=== PATIENT | female | born 1960 | race Caucasian/White ===

== ENCOUNTER 2017-03-30 08:42 | Emergency (ER) | payer BC, SELFPAY ==
[2017-03-30 09:02] VITALS: BP 108/60; PULSE 78; RESP 15; TEMP 38.1; O2SAT 98; BMI 20.3
[2017-03-30 09:19] LABS: UTC Influenza A Antigen Positive (Negative); UTC Influenza B Antigen Negative (Negative)
--- NOTE | 2017-03-30 09:41 | HMH.EDUTC ---
[facility] [place] Clinical Impression: Flu Disposition: Home, Self-Care Condition on Discharge: Good Instructions: How to Avoid a Cold or Flu, Influenza Additional Instructions: Increase fluids, Tylenol or ibuprofen as needed for pain or fever If symptoms worsen or do not improve return or be seen in the ER Follow-up with primary care this week if no improvement Prescriptions: Oseltamivir Phosphate [Tamiflu 75mg Capsule] 75 mg PO BID #10 cap Time of Disposition: 09:45 Medical Decision Making Vital Signs: 03/30/17 09:02 Temperature 100.6 F H Temperature Source Oral Pulse Rate [Right Brachial] 78 Respiratory Rate 15 Blood Pressure [Right Arm] 108/60 Blood Pressure Mean [Right Arm] 76 Blood Pressure Source [Right Arm] Automatic Cuff Blood Pressure Position [Right Arm] Sitting 02 Sat by Pulse Oximetry 98 Oxygen Delivery Method Room Air - Lab Data Lab Results 03/30/17 09:12: Influenza Type A Ag Positive A, Influenza Type B Ag Negative - Elier Inquiry Pt receiving controlled substance: No Elier was queried for this patient: No [facility] [place] - General Stated complaint: fever headache sore throat Mode of Arrival: Ambulatory Source of Information: Patient Limitations: No Limitations Description of Symptoms (Recalled from Triage Doc. by RN): flu like symptoms started friday morning HEENT Symptoms (Recalled from RN notes): Yes (runny nose) Resp Symptoms (Recalled from RN notes): Yes (cough, congestion) Skin Symptoms (Recalled from RN notes): No MS Symptoms (Recalled from RN notes): Yes (generalized body aches) Functional Status (Recalled from RN notes): na - Related Data Previous Rx's Medication Instructions Recorded Oseltamivir Phosphate [Tamiflu 75 mg PO BID #10 cap 03/30/17 75mg Capsule] Allergies Allergy/AdvReac Type Severity Reaction Status Date / Time No Known Allergies Allergy Verified 03/30/17 09:13 - Worker's Comp Is this a Worker's Comp case?: No Is this an [facility] Worker's Comp?: No Is this a [facility] Worker's Comp?: No [facility] History Medical History: Reports:: Cancer (hodgkins lymphoma in 2005) Denies:: Diabetes Mellitus Type 1, Diabetes Mellitus Type 2, MRSA Laterality Cases: Left: Arthroscopy Knee - *Social History Smoking Status: Never smoker Alcohol Intake: current Alcohol Intake Frequency:: a few times a month - Psychiatric History Expresses thoughts of harming self/others: None Suicide Plan Description: No Plan ROS Obtained: Yes All systems reviewed & no additional complaints - Constitutional Constitutional: Reports body ache, Reports chills, Reports fever(s), Reports malaise - Eyes Eyes: Reports system reviewed and no additional complaints, except as docu - ENT Ears, Nose, Mouth, and Throat: Reports as per HPI, Reports sore throat - Cardiovascular Cardiovascular: Reports system reviewed and no additional complaints, except as docu - Respiratory Respiratory: Yes system reviewed and no additional complaints, except as docu - Gastrointestinal Gastrointestingal: Reports: system reviewed and no additional complaints, except as docu - Genitourinary Male Genitourinary: Reports system reviewed and no additional complaints, except as docu - Integumentary/Breasts Skin/Breast: Reports system reviewed and no additional complaints, except as docu - Neurologic Neurologic: Reports system reviewed and no additional complaints, except as docu - Endocrine Endocrine: Reports system reviewed and no additional complaints, except as docu Physical Exam - General General appearance: alert, in no apparent distress - Eye Eye exam: Present: normal appearance, PERRL - ENT ENT exam: Present: normal exam - Neck Neck exam: Present: normal inspection, full ROM - Chest Chest inspection: Present: normal inspection - Respiratory Respiratory exam: Present: normal lung sounds bilaterally - Cardiovascular Cardiovascular exam: Present: regular rate, no
--- NOTE | 2017-03-30 09:45 | ED_ITS ---
[facility] [place]position Clinical Impression: Flu Disposition: Home, Self-Care Condition on Discharge: Good Instructions: How to Avoid a Cold or Flu, Influenza Additional Instructions: Increase fluids, Tylenol or ibuprofen as needed for pain or fever If symptoms worsen or do not improve return or be seen in the ER Follow-up with primary care this week if no improvement Prescriptions: Oseltamivir Phosphate [Tamiflu 75mg Capsule] 75 mg PO BID #10 cap Time of Disposition: 09:45 Medical Decision Making Vital Signs: 03/30/17 09:02 Temperature 100.6 F H Temperature Source Oral Pulse Rate [Right Brachial] 78 Respiratory Rate 15 Blood Pressure [Right Arm] 108/60 Blood Pressure Mean [Right Arm] 76 Blood Pressure Source [Right Arm] Automatic Cuff Blood Pressure Position [Right Arm] Sitting 02 Sat by Pulse Oximetry 98 Oxygen Delivery Method Room Air - Lab Data Lab Results 03/30/17 09:12: Influenza Type A Ag Positive A, Influenza Type B Ag Negative - Elier Inquiry Pt receiving controlled substance: No Elier was queried for this patient: No [facility] [place] HPI - General Stated complaint: fever headache sore throat Mode of Arrival: Ambulatory Source of Information: Patient Limitations: No Limitations Description of Symptoms (Recalled from Triage Doc. by RN): flu like symptoms started friday morning HEENT Symptoms (Recalled from RN notes): Yes (runny nose) Resp Symptoms (Recalled from RN notes): Yes (cough, congestion) Skin Symptoms (Recalled from RN notes): No MS Symptoms (Recalled from RN notes): Yes (generalized body aches) Functional Status (Recalled from RN notes): na - Related Data Previous Rx's Medication Instructions Recorded Oseltamivir Phosphate [Tamiflu 75 mg PO BID #10 cap 03/30/17 75mg Capsule] Allergies Allergy/AdvReac Type Severity Reaction Status Date / Time No Known Allergies Allergy Verified 03/30/17 09:13 - Worker's Comp Is this a Worker's Comp case?: No Is this an [facility] Worker's Comp?: No Is this a [facility] Worker's Comp?: No [facility] History Medical History: Reports:: Cancer (hodgkins lymphoma in 2005) Denies:: Diabetes Mellitus Type 1, Diabetes Mellitus Type 2, MRSA Laterality Cases: Left: Arthroscopy Knee - *Social History Smoking Status: Never smoker Alcohol Intake: current Alcohol Intake Frequency:: a few times a month - Psychiatric History Expresses thoughts of harming self/others: None Suicide Plan Description: No Plan ROS Obtained: Yes All systems reviewed & no additional complaints - Constitutional Constitutional: Reports body ache, Reports chills, Reports fever(s), Reports malaise - Eyes Eyes: Reports system reviewed and no additional complaints, except as docu - ENT Ears, Nose, Mouth, and Throat: Reports as per HPI, Reports sore throat - Cardiovascular Cardiovascular: Reports system reviewed and no additional complaints, except as docu - Respiratory Respiratory: Yes system reviewed and no additional complaints, except as docu - Gastrointestinal Gastrointestingal: Reports: system reviewed and no additional complaints, except as docu - Genitourinary Male Genitourinary: Reports system reviewed and no additional complaints, except as docu - Integumentary/Breasts Skin/Breast: Reports system reviewed and no additional complaints,
== END 2017-03-30 09:54 | disposition home or self-care (01) ==
PROVIDERS: Emergency Provider Nurse Practitioner Family; Family Provider Internal Medicine Adolescent Medicine
DX: J11.1 Influenza due to unidentified influenza virus with other respiratory manifestations (principal); Z85.72 Personal history of non-Hodgkin lymphomas
CPT/HCPCS: 87804; 99201

== ENCOUNTER → 2018-04-09 13:14 | Outpatient (CLI) | payer BC, SELFPAY ==
--- NOTE | 2018-04-09 13:19 | XR_ITS ---
XR chest 2V HISTORY: ITS.REASON: RT SIDE CHEST PAIN ORDERING PHYSICIAN: Nancy Pan PATIENT AGE: 58 years COMPARISON: 08/09/2013 FINDINGS: The cardiomediastinal silhouette and pulmonary vascularity are within normal limits. The lungs are clear without infiltrates, suspicious nodules, or pleural effusions. No acute bony abnormalities. IMPRESSION: Negative chest, no acute finding
[2018-04-09 15:01] LABS: Alanine Aminotransferase 23 U/L (12-78); Albumin Level 4.1 gm/dL (3.4-5.0); Albumin/Globulin Ratio 1.5 (1.1-1.8); Alkaline Phosphatase 68 U/L (46-116); Anion Gap 12.3 mEq/L (5-15); Aspartate Amino Transferase 22 U/L (15-37); Blood Urea Nitrogen 15 mg/dL (7-18); Calcium 9.4 mg/dL (8.5-10.1); Carbon Dioxide 28 mmol/L (21.0-32.0); Chloride 104 mmol/L (98-107); Creatinine,Serum 0.79 mg/dL (0.55-1.02); Estimated Glomerular Filt Rate 75 ml/min (>60); GFR (African American) 90 ML/MIN (>60); Globulin 2.8 gm/dl (1.3-3.2); Glucose 91 mg/dL (74-106); Potassium 4.3 mmoL/L (3.5-5.1); Sodium 140 mmol/L (136-145); Thyroid Stimulating Hormone 2.39 uIU/ml (0.358-3.740); Total Protein,Serum 6.9 gm/dL (6.4-8.2)
[2018-04-09 15:19] LABS: Basophils % 0.3 % (0.1-2.0); Eosinophils % 0.5 % (0.1-12.0); Hematocrit 40.3 % (37.0-47.0); Hemoglobin 12.9 g/dL (12.2-16.2); Lymphocytes # 1.9 K/mm3 (0.7-4.5); Lymphocytes % 23.7 % (10-50); Mean Corpuscular Volume 93.5 fl (81-99); Mean Platelet Volume 7.7 fl (7.4-10.4); Monocytes # 0.3 K/mm3 (0.1-1.0); Monocytes % 3.8 % (1.7-9.3); Neutrophils # 5.6 K/mm3 (1.8-7.8); Neutrophils % 71.8 % (37.0-80.0); Platelet Count 213 K/mm3 (142-424); Red Blood Count 4.31 M/mm3 (4.20-5.40); Red Cell Distribution Width 12.5 % (11.5-17.5); White Blood Count 7.9 K/mm3 (4.8-10.8)
== END ==
PROVIDERS: PCP Internal Medicine Adolescent Medicine; Visit Provider Nurse Practitioner Family
DX: R07.9 Chest pain, unspecified (principal); E03.9 Hypothyroidism, unspecified; Z85.71 Personal history of Hodgkin lymphoma
CPT/HCPCS: 36415; 71046; 80053; 84443; 85025

== ENCOUNTER → 2018-08-05 10:53 | Outpatient (CLI) | payer BC, SELFPAY ==
--- NOTE | 2018-08-05 10:59 | XR_ITS ---
XR chest 2V HISTORY: History of Hodgkin's lymphoma ITS.REASON: PRO OP CLEARANCE ORDERING PHYSICIAN: Samuel Hernandez PATIENT AGE: 58 years COMPARISON: 04/09/2018 FINDINGS: The cardiomediastinal silhouette and pulmonary vascularity are within normal limits. The lungs are clear without infiltrates, suspicious nodules, or pleural effusions. No acute bony abnormalities. IMPRESSION: Negative chest, no acute finding
[2018-08-05 11:24] LABS: Microscopic, Urine URINE MICROSCOPIC (MICROSCOPIC)
[2018-08-05 11:55] LABS: Activated Partial Thrombo Time 28.7 seconds (23.6-34.0); INR 0.96 (0.9-1.1)
[2018-08-05 12:30] LABS: Basophils % 0.7 % (0.1-2.0); Eosinophils # 0.1 K/mm3 (0.0-0.4); Eosinophils % 1.2 % (0.1-12.0); Hematocrit 38.6 % (37.0-47.0); Hemoglobin 13.2 g/dL (12.2-16.2); Lymphocytes # 1.5 K/mm3 (0.7-4.5); Lymphocytes % 35.6 % (10-50); Mean Corpuscular HGB Conc 34.1 g/dL (31.8-35.4); Mean Corpuscular Hemoglobin 30.8 pg (27.0-31.2); Mean Corpuscular Volume 90.2 fl (81-99); Mean Platelet Volume 7.4 fl (7.4-10.4); Monocytes # 0.2 K/mm3 (0.1-1.0); Monocytes % 5.9 % (1.7-9.3); Neutrophils # 2.3 K/mm3 (1.8-7.8); Neutrophils % 56.6 % (37.0-80.0); Platelet Count 184 K/mm3 (142-424); Red Blood Count 4.28 M/mm3 (4.20-5.40); Red Cell Distribution Width 12.6 % (11.5-17.5); White Blood Count 4.1 K/mm3 (4.8-10.8)
[2018-08-05 13:05] LABS: Appearance,Urine CLEAR (Clear); Bilirubin,Urine Negative (Negative); Blood, Urine Negative (Negative); Color,Urine YELLOW (Yellow); Glucose,Urine (UA) Negative (Negative); Ketones,Urine Negative (Negative); Leukocyte Esterase,Urine Negative (Negative); Nitrate,Urine Negative (Negative); Protein,Urine Negative (Negative); Urobilinogen,Urine 0.2 EU/dl (0.2)
[2018-08-05 13:22] LABS: Bacteria,Urine Trace /lpf; Squamous Epithelial Cell,Urine Occasional #/hpf (0-5)
[2018-08-05 13:41] LABS: Anion Gap 12.6 mEq/L (5-15); Blood Urea Nitrogen 16 mg/dL (7-18); Calcium 8.9 mg/dL (8.5-10.1); Carbon Dioxide 28 mmol/L (21.0-32.0); Chloride 106 mmol/L (98-107); Creatinine,Serum 0.64 mg/dL (0.55-1.02); Estimated Glomerular Filt Rate 95 ml/min (>60); GFR (African American) 115 ML/MIN (>60); Glucose 85 mg/dL (74-106); Hemoglobin A1C 5.4 % (0.0-7.0); Potassium 4.6 mmoL/L (3.5-5.1); Sodium 142 mmol/L (136-145)
== END ==
PROVIDERS: PCP Internal Medicine Adolescent Medicine; Visit Provider Orthopaedic Surgery
DX: Z01.818 Encounter for other preprocedural examination (principal)
CPT/HCPCS: 36415; 71046; 80048; 81001; 83036; 85025; 85610; 85730

== ENCOUNTER 2018-09-24 15:00 | Outpatient (RCR) | payer BC, SELFPAY | END 2018-09-24 15:05 | disposition home or self-care (01) | LOC: PT 15:00 | PROVIDERS: Visit Provider Orthopaedic Surgery | DX: M25.562 Pain in left knee (principal); M25.561 Pain in right knee | CPT/HCPCS: 97110; 97140; 97163; 97164 ==

== ENCOUNTER → 2018-10-09 10:01 | Outpatient (CLI) | payer BC, SELFPAY ==
--- NOTE | 2018-10-09 | NVE_ITS ---
Venous Exam IMPRESSIONS No evidence of deep or superficial vein thrombosis involving the right lower extremity and left lower extremity History: Swelling of the right lower extremity. Edema of the right leg. Patient had bruising appear on the lateral aspect of the distal calf 10/04/18 of right lower extremity. Labs, prior tests, procedures, and surgery: Right knee joint prosthesis (August 2018). Left knee joint prosthesis (August 2018). Labs, prior tests, procedures, and surgery: Right knee joint prosthesis (August 2018). Left knee joint prosthesis (August 2018). Complete lower extremity venous duplex evaluation. Doppler flow study including spectral analysis, color and ellis scale imaging. Location: Vascular laboratory. Patient status: Outpatient. CRITICAL FINDINGS - [facility] Read back and verified. - 10/09/18 - 10:45 - Bilateral venous dopplers negative for DVT or SVT Tables: Venous flow and imaging: + +-------+ + Location Overall Flow properties + +-------+ + Right common femoral Patent Normal phasicity; spontaneous; normal augmentation; compressible + +-------+ + Right saphenofemoral junction Patent Compressible + +-------+ + Right profunda femoral Patent Compressible + +-------+ + Right femoral Patent Normal phasicity; spontaneous; normal augmentation; compressible; no reflux + +-------+ + Right greater saphenous Patent Normal phasicity; spontaneous; normal augmentation; compressible + +-------+ + Right popliteal Patent Normal phasicity; spontaneous; normal augmentation; compressible + +-------+ + Right posterior tibial Patent Compressible + +-------+ + Right peroneal Patent Compressible + +-------+ + Right gastrocnemius Patent Compressible + +-------+ + Right soleal Patent Compressible + +-------+ + Left common femoral Patent Normal phasicity; spontaneous; normal augmentation; compressible + +-------+ + Left saphenofemoral junction Patent Compressible + +-------+ + Left profunda femoral
== END ==
PROVIDERS: PCP Internal Medicine Adolescent Medicine; Visit Provider Orthopaedic Surgery
DX: M79.662 Pain in left lower leg (principal); M79.661 Pain in right lower leg; M79.89 Other specified soft tissue disorders
CPT/HCPCS: 93970

== ENCOUNTER → 2019-06-28 09:30 | Outpatient (CLI) | payer BC, SELFPAY ==
[2019-06-28 11:41] LABS: Free T4 (Free Thyroxine) 1.27 ng/dl (0.78-2.19)
[2019-06-28 11:56] LABS: Thyroid Stimulating Hormone 3.29 uIU/mL (0.465-4.68)
== END ==
PROVIDERS: Visit Provider Nurse Practitioner Family
DX: E03.9 Hypothyroidism, unspecified (principal)
CPT/HCPCS: 36415; 84439; 84443

== ENCOUNTER → 2020-05-15 08:30 | Outpatient (CLI) | payer BC, SELFPAY ==
[2020-05-15 09:07] LABS: Basophils % 0.6 % (0.1-2.0); Eosinophils # 0.1 K/mm3 (0.0-0.4); Eosinophils % 1.4 % (0.1-12.0); Hematocrit 41.5 % (37.0-47.0); Hemoglobin 13.6 g/dL (12.2-16.2); Lymphocytes # 1.6 K/mm3 (0.7-4.5); Mean Corpuscular HGB Conc 32.8 g/dL (31.8-35.4); Mean Corpuscular Hemoglobin 30.4 pg (27.0-31.2); Mean Corpuscular Volume 92.7 fl (81-99); Mean Platelet Volume 7.9 fl (7.4-10.4); Monocytes # 0.3 K/mm3 (0.1-1.0); Monocytes % 4.9 % (1.7-9.3); Neutrophils # 3.7 K/mm3 (1.8-7.8); Neutrophils % 65.1 % (37.0-80.0); Platelet Count 197 K/mm3 (142-424); Red Blood Count 4.48 M/mm3 (4.20-5.40); Red Cell Distribution Width 12.7 % (11.5-17.5); White Blood Count 5.8 K/mm3 (4.8-10.8)
[2020-05-15 09:56] LABS: Chloride 106 mmol/L (98-107); Potassium 4.3 mmoL/L (3.5-5.1); Sodium 141 mmol/L (136-145)
[2020-05-15 09:59] LABS: Anion Gap 11.3 mEq/L (5-15); Blood Urea Nitrogen 18 mg/dl (7-17); Carbon Dioxide 28 mmol/L (22.0-30.0); Estimated Glomerular Filt Rate 85 ml/min (>60); GFR (African American) 103 ML/MIN (>60)
[2020-05-15 10:00] LABS: Calcium 9.4 mg/dl (8.4-10.2); Glucose 76 mg/dl (74-100)
[2020-05-15 10:32] LABS: Coronavirus 19 IgG Antibody Negative (Negative)
[2020-05-15 10:33] LABS: Coronavirus 19 IgM Antibody Negative (Negative)
== END ==
PROVIDERS: Visit Provider Surgery
DX: Z01.818 Encounter for other preprocedural examination (principal); K42.9 Umbilical hernia without obstruction or gangrene; Z11.52 Encounter for screening for COVID-19
CPT/HCPCS: 36415; 80048; 85025; 86328

== ENCOUNTER 2020-05-16 08:29 | Day surgery (SDC) | payer BC, SELFPAY ==
[2020-05-09 12:36] VITALS: BMI 20.2
[2020-05-16] VITALS (11 sets, daily range): BP systolic 87–134; BP diastolic 63–74; PULSE 49–63; RESP 13–18; TEMP 36.4–43; O2SAT 93–100
--- NOTE | 2020-05-16 09:25 | HMH.ANESCL ---
[facility] Anesthesia Checklist - Patient Identification Patient Identification: Arm Band - Structural Data Admitted From: Home Planned Operative Procedure/s: Open Umbilical Hernia Repair Consent for Planned Operative Procedure(s) Verified: Yes Verified Documents: Surgical Consent, History and Physical - NPO Status Verified Time NPO: 00:00 - Additional verifications Anesthesia Reactions: Yes (slow to wake) Hx Blood Transfusions: No Blood Transfusion Reaction: No - Airway Assessment C-Spine Mobility Assessed: Yes (mp2) TMJ Mobility Assessed: Yes Dentition: Good Dentition - Neurological Assessment Level of Consciousness: Awake, Alert - Anesthesia Plan Anesthesia Risk discussed: Yes Anesthesia Plan: Verified ASA Class: I Anesthesia Type: General [facility] History I have reviewed the patient's past medical history: Yes Medical History: Reports:: Cancer (HODGKINS) Denies:: Diabetes Mellitus Type 1, Diabetes Mellitus Type 2, Internal Pacemaker, MRSA, Seizures *Have you ever received a pneumonia vaccine?: No *Have you received a flu vaccine this season?: No Other Medical History: Denies: Blood Transfusion Reaction Anesthesia experience/problems:: nac Laterality Cases: Bilateral: Arthroscopy Knee Other Surgeries: Yes: Cancer Surgery, Colonoscopy, Other. No: Pacemaker Amputation: No Fractures: No - *Social History Last grade of school completed: Advanced degree Smoking Status: Never smoker Alcohol Intake: current Alcohol Intake Frequency:: 0-2 drinks per day Substance Use Type: denies use *Occupational Status:: employed Housing: house Household Members: spouse *Travel in the last 8 weeks: Inside the [facility] Family Hx:: Cancer, Coronary Artery Disease
--- NOTE | 2020-05-16 09:35 | P.HP_ITS ---
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 She is referred by Dr. Evaristo Quesada for umbilical hernia. She states that for several years she has noticed that her umbilical area has protruded. Initially this was asymptomatic. However it now protrudes more and she does have some occasional discomfort. This is most notable when she is working out at [facility] She occasionally has to manually reduce the area. [facility] History I have reviewed the patient's past medical history: Yes Medical History: Reports:: Cancer (HODGKINS) Denies:: Diabetes Mellitus Type 1, Diabetes Mellitus Type 2, Internal Pacemaker, MRSA, Seizures *Have you ever received a pneumonia vaccine?: No *Have you received a flu vaccine this season?: No Other Medical History: Denies: Blood Transfusion Reaction Anesthesia experience/problems:: nac Laterality Cases: Bilateral: Arthroscopy Knee Other Surgeries: Yes: Cancer Surgery, Colonoscopy, Other. No: Pacemaker Amputation: No Fractures: No - *Social History Last grade of school completed: Advanced degree Smoking Status: Never smoker Alcohol Intake: current Alcohol Intake Frequency:: 0-2 drinks per day Substance Use Type: denies use *Occupational Status:: employed Housing: house Household Members: spouse *Travel in the last 8 weeks: Inside the [facility] Family Hx:: Cancer, Coronary Artery Disease Review of Systems - Review of Systems Review of systems:: pertinent systems reviewed and negative unless documented below Meds Home Medications Medication Instructions Recorded Confirmed Type Levothyroxine Sodium 50 mcg PO DAILY 09/06/17 05/09/20 History [Levothyroxine 50mcg (0.05mg) Tab] Allergies Allergy/AdvReac Type Severity Reaction Status Date / Time No Known Allergies Allergy Verified 04/10/20 09:15 Exam Vital signs and Labs for Last 24 Hours: Temp Pulse Resp BP Pulse Ox 97.6 F 56 L 18 124/64 100 05/16/20 08:44 05/16/20 08:44 05/16/20 08:44 05/16/20 08:44 05/16/20 08:44 - *Routine HEENT Exam Head: Present: normocephalic Eye: Present: EOMI, PERRL ENT: Present: mucous membranes moist - *Routine Neck Exam Present: supple. Absent: lymphadenopathy - *Routine Respiratory Exam Present: CTA bilaterally - *Routine Cardiovascular Exam Present: RRR - *Routine Abdominal Exam Present: soft, normoactive bowel sounds. Absent: tenderness Comments: Hernia - *Routine Extremities Exam Absent: cyanosis, clubbing, edema - *Routine Skin Exam Present: warm. Absent: rash - *Routine Neurological Exam Present: alert, oriented X3 Assessment and Plan - Assessment and plan all Dx Assessment and Plan for all problems:: Open repair
--- NOTE | 2020-05-16 10:42 | P.OP_ITS ---
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 She is referred by Dr. Evaristo Quesada for umbilical hernia. She states that for several years she has noticed that her umbilical area has protruded. Initially this was asymptomatic. However it now protrudes more and she does have some occasional discomfort. This is most notable when she is working out at [facility]. She occasionally has to manually reduce the area. Operative findings:: She had a relatively small hernia measuring less than 1 cm with herniated fatty tissues. There was redundant hernia sac. Operative note:: Patient was taken to the operating room. She was given preoperative intravenous antibiotics. In the operating room she was placed in a supine position. General anesthesia was induced. Abdomen was prepped and draped. Subumbilical skin incision was made. Dissection was carried down to hernia sac adherent to the umbilical subdermis. This was dissected free. Hernia sac was opened. The extraneous tissues of the peritoneum of the hernia sac was excised down to the fascia and this was sent as specimen labeled hernia sac . Overall size of the defect was rather small measuring 6 or 8 mm. A small sized Bard Ventralex mesh was rolled and inserted into the space posterior to the fascia. It was oriented. The tails of the mesh were sutured to the fascial edges with several 2-0 Prolene sutures. Tails were then cut flush with the fascia. Fascia was closed over the mesh with a couple of interrupted 0 Ethibond sutures. Local anesthetic was infiltrated. Umbilical subdermis was reapproximated to the underlying fascia with a couple of interrupted 2-0 Vicryl sutures. Skin was closed with running 4-0 Monocryl in a subcuticular fashion. Clean dry sterile dressing was applied. Condition: stable Disposition: PACU Specimens:: Hernia sac Complications:: None immediately apparent
--- NOTE | 2020-05-16 10:50 | HMH.ANESI ---
[facility] Anesthesia Record Part I Intake, IV Amount: 900 Estimated blood loss (mL): 5 Urine output (mL): 0 Blood Pressure: 87/66 SaO2: 94 Pulse Rate: 63 Respiratory Rate: 13 Temperature: 98.1 F Patient is:: Drowsy Stable to PACU at:: 10:47
--- NOTE | 2020-05-17 10:20 | HMH.ANESII ---
[facility] Anesthesia Record Part II Discharge Time: 11:27 Destination: Surgical Day Care (OP Surgery) PACU nurse assessment reviewed?: Yes Patient Condition:: Good Anesthesia Complications:: None Swallowing reflex intact?: Yes Cyanosis?: No Blood Pressure: 123/70 Pulse Rate: 53 Temperature: 97.3 F Mental Status: Alert & Oriented Pain level:: 0 Nausea and/or vomitting:: None Intake, IV Amount: 0
[2020-05-17 10:21] VITALS: BP 123/70; PULSE 53; TEMP 36.3
== END 2020-05-16 12:00 | disposition home or self-care (01) ==
LOC: OR 08:31
PROVIDERS: PCP Internal Medicine Adolescent Medicine; Visit Provider Surgery
PROC: (CPT 49585; principal; 2020-05-16 10:00)
DX: K42.9 Umbilical hernia without obstruction or gangrene (principal); Z85.71 Personal history of Hodgkin lymphoma; Z79.899 Other long term (current) drug therapy
CPT/HCPCS: 49585; 96374; C1781; J2405; J2710

== ENCOUNTER → 2020-06-15 08:20 | Outpatient (CLI) | payer BC, SELFPAY ==
[2020-06-15 09:29] LABS: Blood Urea Nitrogen 15 mg/dl (7-17); Estimated Glomerular Filt Rate 85 ml/min (>60); GFR (African American) 103 ML/MIN (>60)
== END ==
PROVIDERS: Visit Provider Surgery
DX: Z01.818 Encounter for other preprocedural examination (principal)
CPT/HCPCS: 36415; 82565; 84520

== ENCOUNTER → 2020-06-20 09:24 | Outpatient (CLI) | payer BC, SELFPAY ==
--- NOTE | 2020-06-20 09:24 | CT_ITS ---
PROCEDURE: CT ABDOMEN PELVIS W CON CLINICAL INDICATION: s/p umbilical hernia Hernia repair 05/16/20 Still having pain above/right of umbilical area Marked with BB COMPARISON: CT ABDPELW/O CT ABD PELVIS W/O CONTRAST from 07/14/2012 CT ABDPELW/O CT ABD PELVIS W/O CONTRAST from 01/23/2017 TECHNIQUE: IV Contrast: 75ML Isovue 370 Oral Contrast None Axial images obtained with sagittal and coronal reformats. All CT scans at the facility use one or more dose reduction, viz: automated exposure control, ma/kV adjustment per patient size (including targeted exams where dose is matched to indication, i.e. head), or iterative reconstruction technique. FINDINGS: LOWER THORAX: There is an 8 mm noncalcified nodule in the left lower lobe probably unchanged. There are bilateral breast prosthesis. ABDOMEN & PELVIS: A well-circumscribed 6 mm hypodensity is present in the right hepatic lobe anteriorly and may be due to small hepatic cyst probably unchanged. The gallbladder, spleen, adrenal glands, and pancreas have an unremarkable appearance. There are multiple calcified splenic granulomas. No renal or ureteral calculi. No hydronephrosis or renal mass. No evidence of appendicitis. There is a mild amount of retained colonic feces. No intestinal obstruction or free air. There has been interval umbilical hernia repair. There is some thickening of the abdominal wall at the region of the umbilicus with mild thickening of the umbilical soft tissue. Slight increased soft tissue density is also present deep to the umbilicus at approximately 2.6 cm transverse and 0.8 cm AP which may be due to postsurgical changes or small hematoma. No abnormal fluid collection/abscess is evident. The uterus is slightly canted toward the right. No acute bony findings. IMPRESSION: 1. Postsurgical changes at the umbilical region with mild thickening of the abdominal wall and posterior to the abdominal wall which may only be related to postsurgical changes. Cannot exclude a small amount of hemorrhage. No no abscess or recurrence hernia. 2. Stable left lower lobe nodule and probable hepatic cyst Dictated by: Torres Kelley MD 06/21/2020 11:12 Torres Kelley MD in [place] 06/21/2020 11:12
== END ==
PROVIDERS: PCP Internal Medicine Adolescent Medicine; Visit Provider Surgery
DX: Z09 Encounter for follow-up examination after completed treatment for conditions other than malignant neoplasm (principal)
CPT/HCPCS: 74177; Q9967

== ENCOUNTER → 2020-06-26 08:33 | Outpatient (CLI) | payer BC, SELFPAY | PROVIDERS: PCP Internal Medicine Adolescent Medicine; Visit Provider Internal Medicine Adolescent Medicine | DX: Z20.822 Contact with and (suspected) exposure to COVID-19 (principal) | CPT/HCPCS: U0003 ==

== ENCOUNTER → 2020-10-05 07:23 | Outpatient (CLI) | payer BC, SELFPAY ==
[2020-10-05 07:38] LABS: Basophils # 0.1 K/mm3 (0-0.2); Basophils % 1.1 % (0.1-2.0); Eosinophils # 0.1 K/mm3 (0.0-0.4); Eosinophils % 1.4 % (0.1-12.0); Hematocrit 41.3 % (37.0-47.0); Hemoglobin 13.6 g/dL (12.2-16.2); Lymphocytes # 1.9 K/mm3 (0.7-4.5); Lymphocytes % 38.2 % (10-50); Mean Corpuscular HGB Conc 33.1 g/dL (31.8-35.4); Mean Corpuscular Hemoglobin 29.9 pg (27.0-31.2); Mean Corpuscular Volume 90.6 fl (81-99); Mean Platelet Volume 8.4 fl (7.4-10.4); Monocytes # 0.3 K/mm3 (0.1-1.0); Monocytes % 6.2 % (1.7-9.3); Neutrophils # 2.6 K/mm3 (1.8-7.8); Neutrophils % 53.2 % (37.0-80.0); Platelet Count 217 K/mm3 (142-424); Red Blood Count 4.56 M/mm3 (4.20-5.40); Red Cell Distribution Width 13.1 % (11.5-17.5); White Blood Count 4.9 K/mm3 (4.8-10.8)
[2020-10-05 07:46] LABS: Alanine Aminotransferase 24 U/L (12-78); Albumin Level 4.5 g/dl (3.5-5.0); Albumin/Globulin Ratio 1.6 (1.1-1.8); Alkaline Phosphatase 67 U/L (38-126); Anion Gap 9.7 mEq/L (5-15); Aspartate Amino Transferase 39 U/L (14-36); Bilirubin,Total 1.4 mg/dl (0.2-1.3); Blood Urea Nitrogen 16 mg/dl (7-17); Calcium 8.9 mg/dl (8.4-10.2); Carbon Dioxide 30 mmol/L (22.0-30.0); Chloride 104 mmol/L (98-107); Estimated Glomerular Filt Rate 85 ml/min (>60); GFR (African American) 103 ML/MIN (>60); Globulin 2.9 g/dL (1.3-3.2); Glucose 94 mg/dl (74-100); Potassium 4.7 mmoL/L (3.5-5.1); Sodium 139 mmol/L (136-145); Total Protein,Serum 7.4 g/dl (6.3-8.2)
--- NOTE | 2020-10-05 09:03 | CT_ITS ---
PROCEDURE: CT SOFT TISSUE NECK W CON CLINICAL HISTORY: CERVICAL LYMPHADENOPATHY,H/O HODGKINS LYMPHOMA Lt neck nodule x several months Marked with BB No c/o pain Hx of [place] lymphoma COMPARISON: CR CXR2V XR chest 2V from 04/09/2018 TECHNIQUE: Oral Contrast: None IV Contrast: 75 mL Isovue 370. Axial images obtained with sagittal and coronal reformats. All CT scans at the facility use one or more dose reduction, viz: automated exposure control, ma/kV adjustment per patient size (including targeted exams where dose is matched to indication, i.e. head), or iterative reconstruction technique. FINDINGS: The orbits and paranasal sinuses have an unremarkable appearance. There is mild rightward nasal septal deviation. The nasopharynx appears unremarkable. There is some asymmetric increased soft tissue density in the left tonsillar region with obliteration of the left parapharyngeal recess area. Direct visualization is suggested.. The epiglottis and glottic region appears unremarkable. A BB is placed in the left lateral neck region at the submandibular area in the area of palpable concern. Left submandibular gland is somewhat prominent and may account for the palpable abnormality. There are few small lymph nodes in the submandibular area on the left measuring up to 1.3 x 0.7 cm. The left parotid gland is also slightly more more prominent than the right side. No dominant adenopathy is evident. No abnormal fluid collections. There is some mild right apical pleural thickening with patchy ground-glass density in the right apex. Degenerative changes are present in the cervical spine with reversal of the cervical lordosis IMPRESSION: 1. There is mild prominence of the left submandibular gland which may account for the palpable abnormality in the left neck. There is a small lymph node posterior to the left submandibular gland measuring 1.3 x 0.7 cm. 2. Asymmetric increased soft tissue density in the left palatine tonsillar area. Tonsillar hypertrophy, inflammatory or infectious process or even neoplasm is a consideration. Please correlate with direct visualization. Dictated by: Torres Kelley MD 10/06/2020 08:09 Torres Kelley MD in [place] 10/06/2020 08:09
[2020-10-06 15:57] LABS: Uric Acid 3.3 mg/dl (2.5-6.2)
== END ==
PROVIDERS: PCP Internal Medicine Adolescent Medicine; Visit Provider Nurse Practitioner Family
DX: R59.0 Localized enlarged lymph nodes (principal); Z85.71 Personal history of Hodgkin lymphoma
CPT/HCPCS: 36415; 70491; 80053; 84550; 85025; Q9967

== ENCOUNTER 2020-10-23 09:38 | Emergency (ER) | payer BC, SELFPAY ==
[2020-10-23 09:45] VITALS: BP 127/64; PULSE 61; RESP 19; TEMP 36.8; O2SAT 99; BMI 20.5
--- NOTE | 2020-10-23 10:34 | HMH.EDUTC ---
[facility] [facility] [place] Clinical Impression: Exposure to COVID-19 virus Disposition: Home, Self-Care Condition on Discharge: Good Instructions: DI for COVID-19 (Suspected or Confirmed ), Coronavirus Disease 2019, Preventing the Spread of Coronavirus Discharge Instructions Additional Instructions: *Monitor Temp, Over the counter Motrin or Tylenol as directed/as needed Tylenol every 4 hours and Motrin every 6 hours (as long as your family doctor has told you that you can take it) for fever or pain. and straight to ER if unable to lower temp less than 101.0 after medication given Follow up IMMEDIATELY for new or worsening symptoms or no Noticeable improvement over the next 48-72 hours. 911 for difficulty breathing or swallowing You were tested for today for COVID19 your test result should be back in the next 24-48 hours, you may call to the [facility] to see if your test results are back in the next 48 hours [phone] [facility] hours are 9am-9pm You was given a handout with instructions for Self Quarantine and Self isolation for while you wait on test results and what to do if they are positive If you are positive the Health Dept will be contacting you also Make sure to take your Vitamins Vit. C Vit D and Zinc if you can take them Referrals: Evaristo Quesada MD [Primary Care Provider] - As needed Time of Disposition: 10:40 Medical Decision Making - Elier Inquiry Pt receiving controlled substance: No Elier was queried for this patient: No Vital Signs: 10/23/20 09:45 Temperature 98.3 F Temperature Source Oral Pulse Rate [Right Brachial] 61 Respiratory Rate 19 Blood Pressure [Right Arm] 127/64 Blood Pressure Mean [Right Arm] 85 Blood Pressure Source [Right Arm] Automatic Cuff Blood Pressure Position [Right Arm] Sitting 02 Sat by Pulse Oximetry 99 Oxygen Delivery Method Room Air Orders (Tests/Meds): ORDERS Category Date Time Status Covid-19 Nasal PCR ([facility]) Routine Lab 10/23/20 09:57 Re[place] [facility] [place] - General Stated complaint: Covid Test Time Seen by Provider: 10/23/20 10:34 Mode of Arrival: Ambulatory Source of Information: Patient Limitations: No Limitations Description of Symptoms (Recalled from Triage Doc. by RN): COVID TEST D/T EXPOSURE FROM CO-WORKER LAST WEEK. 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 and wanted to get tested for COVID to make sure she didnt having before being around family - Related Data Home Medications Medication Instructions Recorded Confirmed Levothyroxine Sodium 50 mcg PO DAILY 09/06/17 06/23/20 [Levothyroxine 50mcg (0.05mg) Tab] Allergies Allergy/AdvReac Type Severity Reaction Status Date / Time No Known Allergies Allergy Verified 06/23/20 09:20 - Worker's Comp Is this a Worker's Comp case?: No [facility] History - Hepatitis A Screen Drug use history?: No High risk sexual behaviors?: No History of sexually transmitted infection?: No Currently employed?: No Childcare worker?: No Do you have indoor plumbing?: Yes Do you have electricity?: Yes Attestation statement:: This patient has been screened for Hepatitis A risk factors. I have reviewed the patient's past medical history: Yes Medical History: Reports:: Cancer Denies:: Diabetes Mellitus Type 1, Diabetes Mellitus Type 2, Internal Pacemaker, MRSA, Seizures Other Medical History: Denies: Blood Transfusion Reaction Laterality Cases: Bilateral: Arthroscopy Knee Other Surgeries: Yes: Cancer Surgery, Colonoscopy, Hernia Repair, Other. No: Pacemaker Amputation: No Fractures: No - Social
[2020-10-23 10:38] VITALS: BP 127/64; PULSE 61; RESP 19; TEMP 36.8; O2SAT 99
== END 2020-10-23 10:43 | disposition home or self-care (01) ==
PROVIDERS: Emergency Provider Nurse Practitioner; PCP Internal Medicine Adolescent Medicine
DX: Z20.822 Contact with and (suspected) exposure to COVID-19 (principal)
CPT/HCPCS: 99202; G0463; U0003

== ENCOUNTER → 2020-12-21 17:36 | Outpatient (CLI) | payer BC, SELFPAY | PROVIDERS: PCP Internal Medicine Adolescent Medicine; Visit Provider Nurse Practitioner | DX: Z20.822 Contact with and (suspected) exposure to COVID-19 (principal) | CPT/HCPCS: C9803; U0003; U0005 ==

== ENCOUNTER → 2021-02-06 17:21 | Outpatient (CLI) | payer BC, SELFPAY | PROVIDERS: Visit Provider Nurse Practitioner Family | DX: N39.0 Urinary tract infection, site not specified (principal); B96.20 Unspecified Escherichia coli [E. coli] as the cause of diseases classified elsewhere | CPT/HCPCS: 87086; 87088; 87186 ==

== ENCOUNTER → 2021-02-28 07:58 | Outpatient (CLI) | payer BC, SELFPAY ==
--- NOTE | 2021-02-28 | CA_ITS ---
APPROVED REPORT EXAM: Comprehensive 2D, Doppler, and color-flow Echocardiogram Wire Stripping Machine Operator: Venecia Ken, RT(R) Ht: 5 ft 3 in Wt: 120lbs BSA: 1.56 BP: 127/64 mmHg Indications: murmur, CP, palpitations, family history HD, hx of CA 2D Dimensions LVOT 1.82 cm (M/F) 1.5-2.5 LA Volume 32.90 mL LA Volume Index 21.22 mL/m2 (M/F) 16-34 M-Mode Dimensions RVDd 2.38 cm (0.9-2.6) LA Diam 2.98 cm (1.9-4.0) LVDd 4.63 cm (3.5-5.7) Ao Diam 2.67 cm (2.0-3.7) LVDs 3.59 cm (3.5-5.7) IVSd 0.69 cm (0.6-1.1) PWd 0.81 cm (0.6-1.1) EF (Teich) 45.20% FS 22.50% EDV (Teich) 98.80 mL ESV (Teich) 54.10 mL LV Diastology E Decel Time 240.00 (160-240 msec) E/A Ratio 0.92 MED E' 5.70 (< 7 cm/sec) E'/MED E' Ratio 9.91 (>14) Aortic Valve LVOT Max 100.00 (70-110 cm/s) LVOT VTI 23.62 cm AoV Peak Coleman. 145.00 (50-130 cm/s) AO Peak GR. 8.40 mmHg AO Mean GR. 4.20 (<5 mmHg) AO VTI 34.59 (18-25 cm) ESTELLE (VTI) 1.78 (2.5-4.5 cm2) Mitral Valve MV A Velocity 61.00 (40-130 cm/s) E/A Ratio 0.92 MV Decel. Time 240.00 (160-240 ms) Left Ventricle Left atrium is mildly enlarged, left ventricle is normal size, visually estimated ejection fraction 55% with no regional wall motion abnormality, diastolic parameters are inconclusive. There is no concentric left ventricular hypertrophy. Right Ventricle Right atrium and right ventricle are normal size and contractility. Aortic Valve Aortic valve leaflets are not well visualized, possibility of bicuspid aortic valve cannot be excluded, there is mild aortic insufficiency. There is no aortic stenosis. Mitral Valve Mitral valve grossly normal, there is trace mitral regurgitation. Tricuspid Valve Tricuspid grossly normal, there is trace tricuspid regurgitation, tricuspid regurgitation jet velocity is inadequate for calculation of the right ventricular systolic pressure. Pulmonic Valve Pulmonic valve is poorly visualized. Great Vessels Aortic root is normal size. Inferior vena cava is poorly visualized. Pericardium No significant pericardial effusion noted. Conclusion 1. Mildly enlarged left atrium, normal left ventricular size, visually estimated ejection fraction 55% with no regional wall motion abnormality, there is no concentric left ventricular hypertrophy, diastolic parameters are inconclusive. 2. Aortic valve leaflets are not well visualized, possibility of bicuspid aortic valve cannot be excluded, there is mild aortic insufficiency. There is no aortic stenosis 3. No significant pericardial effusion 4. Inferior vena cava is poorly visualized. Electronically signed by : Ted Lozada MD 02/28/2021 20:44:07
== END ==
PROVIDERS: PCP Internal Medicine Adolescent Medicine; Visit Provider Nurse Practitioner Family
DX: R01.1 Cardiac murmur, unspecified (principal)
CPT/HCPCS: 93306

== ENCOUNTER → 2021-09-19 16:05 | Outpatient (CLI) | payer SELFPAY ==
--- NOTE | 2021-09-19 16:10 | XR_ITS ---
FINAL REPORT CLINICAL HISTORY: lateral foot pain, ran over with forklift FINDINGS: RIGHT FOOT Three views of the right foot demonstrate no acute fracture or dislocation. There is advanced joint space narrowing at the 1st MTP joint. There is hypertrophic change the joint margins. The soft tissues are unremarkable. IMPRESSION: No acute bony abnormality. 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 Reviewed, Interpreted and Dictated by Natalio Ya MD Transcribed by Bridget Vargas Authenticated and [facility]
== END ==
PROVIDERS: PCP Internal Medicine Adolescent Medicine; Visit Provider Internal Medicine Adolescent Medicine
DX: M79.671 Pain in right foot (principal)
CPT/HCPCS: 73630

== ENCOUNTER → 2021-10-26 15:38 | Outpatient (CLI) | payer BC, SELFPAY ==
--- NOTE | 2021-10-26 15:42 | XR_ITS ---
FINAL REPORT CLINICAL HISTORY: PAIN, CRUSH INJURY rt foot 4th & 5th toes and top of foot COMPARISON: 09/19/2021 FINDINGS: Right foot Three views were obtained. There is severe degenerative changes of the 1st metatarsophalangeal joint. There is a nondisplaced fracture at the distal aspect of the 5th proximal phalanx. No soft tissue abnormality is identified. IMPRESSION: Nondisplaced fracture of the 5th proximal phalanx. Reviewed, Interpreted and Dictated by Elvis Kimbrough III, MD Transcribed by Silvina Canales Authenticated and [facility]
== END ==
PROVIDERS: PCP Internal Medicine Adolescent Medicine; Visit Provider Podiatrist
DX: M79.671 Pain in right foot (principal)
CPT/HCPCS: 73630

== ENCOUNTER → 2022-09-09 12:08 | Outpatient (CLI) | payer OTHER, SELFPAY ==
[2022-09-09 12:30] LABS: Basophils % 0.9 % (0.1-2.0); Eosinophils # 0.1 K/mm3 (0.0-0.4); Eosinophils % 1.5 % (0.1-12.0); Hematocrit 39.8 % (37.0-47.0); Hemoglobin 12.6 g/dL (12.2-16.2); Lymphocytes # 1.8 K/mm3 (0.7-4.5); Mean Corpuscular HGB Conc 31.7 g/dL (31.8-35.4); Mean Corpuscular Hemoglobin 28.9 pg (27.0-31.2); Mean Corpuscular Volume 91.1 fl (81-99); Mean Platelet Volume 8.2 fl (7.4-10.4); Monocytes # 0.3 K/mm3 (0.1-1.0); Monocytes % 5.7 % (1.7-9.3); Neutrophils # 2.2 K/mm3 (1.8-7.8); Platelet Count 177 K/mm3 (142-424); Red Blood Count 4.37 M/mm3 (4.20-5.40); Red Cell Distribution Width 13.1 % (11.5-17.5); White Blood Count 4.3 K/mm3 (4.8-10.8)
[2022-09-09 13:00] LABS: Alanine Aminotransferase 23 U/L (12-78); Albumin Level 4.3 g/dl (3.5-5.0); Albumin/Globulin Ratio 1.7 (1.1-1.8); Alkaline Phosphatase 62 U/L (38-126); Anion Gap 11.5 mEq/L (5-15); Aspartate Amino Transferase 38 U/L (14-36); Bilirubin,Total 1.2 mg/dl (0.2-1.3); Blood Urea Nitrogen 14 mg/dl (7-17); Calcium 8.7 mg/dl (8.4-10.2); Carbon Dioxide 29 mmol/L (22.0-30.0); Chloride 104 mmol/L (98-107); Estimated Glomerular Filt Rate 101 ml/min (>60); GFR (African American) 123 ML/MIN (>60); Globulin 2.5 g/dL (1.3-3.2); Glucose 85 mg/dl (74-100); Potassium 4.5 mmoL/L (3.5-5.1); Sodium 140 mmol/L (136-145); Total Protein,Serum 6.8 g/dl (6.3-8.2)
[2022-09-09 13:06] LABS: C-Reactive Protein 1.3 mg/L (0-4)
[2022-09-09 13:18] LABS: T4 (Thyroxine) 9.2 ug/dl (5.53-11.0); Triiodothryronine (T3) Uptake 33 % (23.5-40.5)
[2022-09-09 13:46] LABS: Erythrocyte Sedimentation Rate 16 mm/hr (0-30)
== END ==
PROVIDERS: PCP Internal Medicine Adolescent Medicine; Visit Provider Nurse Practitioner Family
DX: R51.9 Headache, unspecified (principal); E03.9 Hypothyroidism, unspecified; Z85.71 Personal history of Hodgkin lymphoma
CPT/HCPCS: 36415; 80053; 84436; 84443; 84479; 85025; 85651; 86140

== ENCOUNTER → 2022-09-17 12:52 | Outpatient (CLI) | payer OTHER, SELFPAY ==
--- NOTE | 2022-09-17 13:00 | CT_ITS ---
FINAL REPORT TECHNIQUE: Thin section axial CT images were obtained through the neck after intravenous contrast administration. Coronal and sagittal reformats were also obtained. This study was performed with techniques to keep radiation doses as low as reasonably achievable (ALARA). Individualized dose reduction techniques using automated exposure control or adjustment of mA and/or kV according to the patient''s size were employed. CLINICAL HISTORY: HEADACHE,H/O HODGKINS LYMPHOMA,LYMPHADENOPATHY COMPARISON: 10/05/2020 FINDINGS: There is continued persistent soft tissue fullness of the left tonsillar pillar also noted on the previous CT examination of 2020. This is of uncertain significance, however in a patient with a history of Hodgkin's disease neoplasm cannot be excluded. There are several left internal jugular chain nodes which are larger than noted on the prior CT. A node at the level of the left hyoid bone was 7 x 5 mm, now measures 12 x 9 mm. A second node at the C3 level was 7 x 4 mm, and on today's exam measures 11 x 7 mm. There are several other smaller left-sided cervical nodes as well. The thyroid gland is unremarkable. The visualized sinuses are clear. There is mild scarring in the right lung apex with ground glass opacities, stable since the prior exam. There are degenerative changes present in the cervical spine. IMPRESSION: Persistent soft tissue fullness of the left tonsillar pillar as described on the previous CT of 2020, of uncertain significance but neoplasm would be difficult to exclude. CT exam there has been interval enlargement of several left internal jugular chain nodes since the prior. These are worrisome for recurrent neoplasm, and would recommend PET CT examination for further evaluation as indicated. Reviewed, Interpreted and Dictated by Elvis Kimbrough III, MD Transcribed by Lorene Eddy Authenticated and [facility]
== END ==
PROVIDERS: PCP Nurse Practitioner Family; Visit Provider Nurse Practitioner Family
DX: R51.9 Headache, unspecified (principal); R59.1 Generalized enlarged lymph nodes; Z85.71 Personal history of Hodgkin lymphoma
CPT/HCPCS: 70491; Q9967

== ENCOUNTER → 2022-09-19 09:38 | Outpatient (CLI) | payer OTHER, SELFPAY ==
--- NOTE | 2022-09-19 09:43 | MR_ITS ---
FINAL REPORT CLINICAL HISTORY: HEADACHE, HISTORY OF HODGKINS LYMPHOMA. COMPARISON: None FINDINGS: Multiplanar MR imaging of the brain was performed without and with contrast. There is no evidence of intracranial hemorrhage or mass. No abnormal extra-axial fluid collection is seen. The ventricular size is within normal limits. There is no evidence of shift of the midline structures. The posterior fossa and brainstem have an unremarkable appearance. No area of abnormal restricted diffusion is identified. No abnormal contrast enhancement is seen. Normal major vessel vascular flow voids are noted. IMPRESSION: No acute intracranial abnormality identified. Reviewed, Interpreted and Dictated by Elvis Kimbrough III, MD Transcribed by Lorene Eddy Authenticated and [facility]
== END ==
PROVIDERS: PCP Nurse Practitioner Family; Visit Provider Nurse Practitioner Family
DX: R51.9 Headache, unspecified (principal); R59.1 Generalized enlarged lymph nodes; Z85.71 Personal history of Hodgkin lymphoma
CPT/HCPCS: 70553; A9576

== ENCOUNTER → 2022-10-30 11:41 | Outpatient (CLI) | payer OTHER, SELFPAY ==
--- NOTE | 2022-10-30 11:50 | ECG_ITS ---
APPROVED REPORT Exam: Resting ECG HR:53 bpm ECG Measurements Heart Rate 53 AXES ND 162 P 13 QRSd 88 QRS 45 QT 429 T 59 QTc 413 Conclusion SINUS BRADYCARDIA BORDERLINE ECG UNCONFIRMED REPORT Electronically signed by : Evaristo Quesada MD 10/31/2022 06:43:01
[2022-10-30 12:32] LABS: Basophils % 0.5 % (0.1-2.0); Eosinophils % 0.6 % (0.1-12.0); Hematocrit 38.3 % (37.0-47.0); Hemoglobin 12.7 g/dL (12.2-16.2); Lymphocytes # 2.2 K/mm3 (0.7-4.5); Lymphocytes % 42.8 % (10-50); Mean Corpuscular HGB Conc 33.3 g/dL (31.8-35.4); Mean Corpuscular Hemoglobin 30.5 pg (27.0-31.2); Mean Corpuscular Volume 91.6 fl (81-99); Mean Platelet Volume 8.1 fl (7.4-10.4); Monocytes # 0.3 K/mm3 (0.1-1.0); Monocytes % 5.4 % (1.7-9.3); Neutrophils # 2.6 K/mm3 (1.8-7.8); Neutrophils % 50.7 % (37.0-80.0); Platelet Count 199 K/mm3 (142-424); Red Blood Count 4.18 M/mm3 (4.20-5.40); Red Cell Distribution Width 13.2 % (11.5-17.5); White Blood Count 5.1 K/mm3 (4.8-10.8)
[2022-10-30 13:00] LABS: Alanine Aminotransferase 23 U/L (12-78); Albumin Level 4.2 g/dl (3.5-5.0); Albumin/Globulin Ratio 1.5 (1.1-1.8); Alkaline Phosphatase 64 U/L (38-126); Anion Gap 12.4 mEq/L (5-15); Aspartate Amino Transferase 32 U/L (14-36); Bilirubin,Total 1.3 mg/dl (0.2-1.3); Blood Urea Nitrogen 17 mg/dl (7-17); Calcium 9.1 mg/dl (8.4-10.2); Carbon Dioxide 28 mmol/L (22.0-30.0); Chloride 105 mmol/L (98-107); Estimated Glomerular Filt Rate 85 ml/min (>60); GFR (African American) 103 ML/MIN (>60); Globulin 2.8 g/dL (1.3-3.2); Glucose 89 mg/dl (74-100); Potassium 4.4 mmoL/L (3.5-5.1); Sodium 141 mmol/L (136-145)
== END ==
PROVIDERS: PCP Nurse Practitioner Family; Visit Provider Otolaryngology
DX: Z01.812 Encounter for preprocedural laboratory examination (principal)
CPT/HCPCS: 36415; 80053; 85025; 93005

== ENCOUNTER 2024-02-21 18:28 | Emergency (ER) | payer OTHER, SELFPAY ==
--- NOTE | 2024-02-21 18:45 | ED_ITS ---
Discharge Plan Disposition Patient Disposition: Home, Self-Care Condition: Good Prescriptions Prescriptions: No Action levothyroxine 50 MCG tablet 50 mcg PO DAILY Referrals Follow up/Referrals: Evaristo Quesada MD [Primary Care Provider] - See instructions Activity Restrictions/Add. Instructions Additional Instructions/Restrictions: Follow up with your primary care physician. GO TO THE ER FOR ANY WORSENING SYMPTOMS OR CONCERNS Clinical Impressions Clinical Impression: Encounter for change or removal of nonsurgical wound dressing Print Language Print Language: Luxembourgish Discharge ED Provider: Alex Pineda [facility] [place] General Stated complaint: dressing looked at for chest tube Time Seen by Provider: 02/21/24 18:44 History of Present Illness Provider Complaint: She is here to have a dressing replaced on her chest tube site. Related Data Home Medications ?Medication ?Instructions ?Recorded ?Confirmed levothyroxine 50 mcg tablet 50 mcg PO DAILY THYROID 09/06/17 10/30/21 Allergies Allergy/AdvReac Type Severity Reaction Status Date / Time No Known Allergies Allergy Verified 10/30/21 09:56 [facility] Disclaimer: The information contained in this section may have been updated after the patient was seen, as this information can be updated by other users. 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 current occupational exposures/hazards: No caffeine: Yes Have you lived/traveled outside [place] in past 30 days?: No Contact w/someone who lives/traveled outside [place] past 30 days?: No Exposure to someone with infectious disease in past 14 days?: No Do you have a fever (greater than 100.4 F or 38 C)?: No Have you tested positive for COVID-19: No Exposed to someone with COVID-19 in past 14 days?: No Do you have a sore throat?: No Do you have a cough?: No Do you have any weakness?: No Do you have any diarrhea?: No Are you experiencing any unusual bleeding?: No Do you have any muscle aches/pain?: No Do you have any abdominal pain?: No Are you experiencing loss of taste or smell?: No ROS Obtained: Yes All systems reviewed & no additional complaints except as documented Constitutional Constitutional: Denies chills and Denies fever(s) Eyes Eyes: Denies eye discharge ENT Ears, Nose, Mouth, and Throat: Denies dizziness, Denies otalgia and Denies sore throat Cardiovascular Cardiovascular: Denies chest pain Respiratory Respiratory: Denies shortness of breath, Denies chest congestion, Denies cough, Denies stridor and Denies wheezing Gastrointestinal Gastrointestingal: Denies nausea or vomiting Musculoskeletal Musculoskeletal: Reports system reviewed and no additional complaints, except as documented and Denies arthralgias Integumentary/Breasts Skin/Breast: Denies rash Neurologic Neurologic: Denies dizziness and Denies paresthesias Allergic/Immunologic Allergic/Immunologic: Denies wheezing Physical Exam General General appearance: alert and in no apparent distress Head Head exam: atraumatic, normocephalic and normal inspection Eye Eye exam: Present normal appearance, PERRL and EOMI ENT ENT exam: Present normal exam, normal oropharynx, mucous membranes moist, TM's normal bilaterally and normal external ear exam Neck Neck exam: Present normal inspection, full ROM and trachea midline; Absent meningismus or lymphadenopathy Chest Chest inspection: Present normal inspection and symmetric chest wall rise; Absent tenderness Respiratory Respiratory exam: Present normal lung sounds bilaterally; Absent respiratory distress Cardiovascular Cardiovascular exam: Present regular rate and normal rhythm; Absent JVD Abdominal Exam Abdominal exam: Present soft and normal bowel sounds; Absent distention, tenderness or guarding Extremities Exam Extremities exam: Present normal inspection, full ROM and normal capillary refill; Absent calf tenderness Back Exam Back exam: Present normal inspection; Absent tenderness Neurological Exam Neurological exam: Present alert and oriented X3 Psychiatric Psychiatric exam: Present normal affect and normal mood Skin Skin exam: Present other (there is redness around her left sided chest tube site. ) Lymphatic Lymphatic Findings: no adenopathy Medical Decision Making Medical Records Medical records reviewed: No I reviewed the patient's medical records. Screening: Per USPSTF and CDC recommendations, given the prevalence of disease in our region, it is our hospital?s policy to screen for HIV and viral Hepatitis for all patients aged 18 and over and those with ongoing risk factors. Elier Inquiry Pt receiving controlled substance: No
[2024-02-21 18:58] VITALS: BP 139/51; PULSE 77; RESP 18; TEMP 36.9; O2SAT 97; BMI 21.2
[2024-02-21 19:07] VITALS: BP 139/51; PULSE 77; RESP 18; TEMP 36.9
--- NOTE | 2024-02-25 10:24 | PC.NURSE ---
PATIENT INFORMED OF WOUND CULTURE RESULTS, ADVISED TO CALL DOCTOR WHO DID HER CHEST TUBE VIANEY FOR FURTHER TX. PATIENT IN UNDERSTANDING.
== END 2024-02-21 19:08 | disposition home or self-care (01) ==
PROVIDERS: Emergency Provider Nurse Practitioner Family; PCP Internal Medicine Adolescent Medicine
DX: Z48.00 Encounter for change or removal of nonsurgical wound dressing (principal)
CPT/HCPCS: 87070; 87077; 87186; 87205; 99211; G0380

== ENCOUNTER 2024-03-04 11:33 | Outpatient (CLI) | payer OTHER, SELFPAY ==
--- NOTE | 2024-03-04 11:36 | XR_ITS ---
FINAL REPORT TECHNIQUE: Chest PA & Lateral CLINICAL HISTORY: FEVER, S/P LOBECTOMY OF LUNG, left FINDINGS: 2 views of the chest were performed. The heart size is normal. The mediastinum is within normal limits. There is mild atelectasis at the left lung base. There are no pleural effusions. There is no pneumothorax. The bony thorax appears intact. IMPRESSION: Mild left basilar atelectasis. Reviewed, Interpreted and Dictated by Natalio Ya MD Transcribed by rAianna Ramos Authenticated and [facility]
[2024-03-04 11:58] LABS: Coronavirus 19, PCR Not Detected (NotDetected); Influenza A, PCR Not Detected (NotDetected); Influenza B, PCR Not Detected (NotDetected)
[2024-03-04 12:25] LABS: Hematocrit 34.7 % (37.0-47.0); Hemoglobin 11.4 g/dL (12.2-16.2); Lymphocytes % 25.5 % (10-50); Mean Corpuscular HGB Conc 32.9 g/dL (31.8-35.4); Mean Corpuscular Hemoglobin 29.2 pg (27.0-31.2); Mean Corpuscular Volume 88.7 fl (81-99); Mean Platelet Volume 9.6 fl (7.4-10.4); Neutrophils % 65.8 % (37.0-80.0); Platelet Count 124 K/mm3 (142-424); Red Blood Count 3.91 M/mm3 (4.20-5.40); Red Cell Distribution Width 12.9 % (11.5-17.5)
[2024-03-04 12:26] LABS: Basophils % 0.5 % (0.1-2.0); Eosinophils % 0.5 % (0.1-12.0); Lymphocytes # 0.5 K/mm3 (0.7-4.5); Monocytes # 0.1 K/mm3 (0.1-1.0); Monocytes % 4.1 % (1.7-9.3); Neutrophils # 1.3 K/mm3 (1.8-7.8)
[2024-03-04 13:05] LABS: Alanine Aminotransferase 30 U/L (12-78); Albumin Level 3.5 g/dl (3.5-5.0); Albumin/Globulin Ratio 1.5 (1.1-1.8); Alkaline Phosphatase 65 U/L (38-126); Aspartate Amino Transferase 66 U/L (14-36); Bilirubin,Total 0.6 mg/dl (0.2-1.3); Blood Urea Nitrogen 15 mg/dl (7-17); Calcium 8.1 mg/dl (8.4-10.2); Carbon Dioxide 25 mmol/L (22.0-30.0); Chloride 100 mmol/L (98-107); Estimated Glomerular Filt Rate 72 ml/min (>60); GFR (African American) 88 ML/MIN (>60); Globulin 2.3 g/dL (1.3-3.2); Glucose 85 mg/dl (74-100); Sodium 131 mmol/L (136-145); Total Protein,Serum 5.8 g/dl (6.3-8.2)
[2024-03-04 14:04] LABS: Anion Gap 10.1 mEq/L (5-15); Potassium 4.1 mmoL/L (3.5-5.1)
== END 2024-03-04 23:59 | disposition home or self-care (01) ==
LOC: LAB 11:34
PROVIDERS: PCP Internal Medicine Adolescent Medicine; Visit Provider Nurse Practitioner Family
DX: R50.9 Fever, unspecified (principal); Z90.2 Acquired absence of lung [part of]
CPT/HCPCS: 36415; 71046; 80053; 85025; 87636